=== PATIENT | male | born 1960 | race Hispanic/Latino ===

== ENCOUNTER → 2018-03-06 10:30 | Outpatient (CLI) | payer OTHER, MEDICAID, SELFPAY ==
--- NOTE | 2018-03-06 | DI.RAD.S_ITS ---
PROCEDURE: XR LUMBAR SPINE 2-3V INDICATIONS: low back pain TECHNIQUE: 3 views of the lumbar spine were acquired. COMPARISON: None. FINDINGS: Bones: 5 [id number] vertebrae are present. Multilevel grade 1 retrolisthesis. Mild multilevel disc degeneration and L4-L5/L5-S1 facet joint arthropathy. No vertebral body compression fractures. No suspicious bony lesions. Soft tissues: Overlying bowel gas pattern is normal. No suspicious soft tissue calcifications. IMPRESSION: Mild multilevel degenerative change. Dictated by: Dino MCCARTHY Interpreted: Emmanuel Armstrong MD on 03/06/2018 at 11:56 Approved by: Emmanuel Armstrong M.D. on 03/06/2018 at 13:57
== END ==
DX: M54.5 Low back pain (principal); M51.36 Other intervertebral disc degeneration, lumbar region; M43.16 Spondylolisthesis, lumbar region; M47.816 Spondylosis without myelopathy or radiculopathy, lumbar region; M47.817 Spondylosis without myelopathy or radiculopathy, lumbosacral region
CPT/HCPCS: 72100